=== PATIENT | female | born 1955 | race Caucasian/White ===

== ENCOUNTER → 2020-11-29 12:03 | Outpatient (CLI) | payer OTHER, SELFPAY ==
[2020-11-29 13:22] LABS: Coronavirus 19 IgG Antibody Positive (Negative); Coronavirus 19 IgM Antibody Negative (Negative)
== END ==
PROVIDERS: Visit Provider Internal Medicine Gastroenterology
DX: Z01.812 Encounter for preprocedural laboratory examination (principal); Z20.822 Contact with and (suspected) exposure to COVID-19; Z12.11 Encounter for screening for malignant neoplasm of colon
CPT/HCPCS: 36415; 86328

== ENCOUNTER 2020-12-01 08:02 | Day surgery (SDC) | payer OTHER, SELFPAY ==
[2020-10-14 15:56] VITALS: BMI 23.9
[2020-11-25 09:45] VITALS: BMI 23.9
[2020-12-01] VITALS (7 sets, daily range): BP systolic 85–135; BP diastolic 54–84; PULSE 61–86; RESP 18; TEMP 36.2–36.6; O2SAT 95–98
--- NOTE | 2020-12-01 09:37 | HMH.PROC ---
[facility] Procedure Note Procedure Note:: Colonoscopy Procedure Report: Colonoscopy with cold snare polypectomy Endoscopist: Jonas Bertrand II, MD Referring physician: Charlie Lam MD Date of Procedure: December 01, 2020 Equipment: Olympus 180 variable stiffness pediatric colonoscope Sedation: MAC sedation Indication: Mrs. Hill is a 65-year-old female who is here for follow-up screening/surveillance colonoscopy secondary to a personal history of adenomatous colon polyps. The patient had a colonoscopy in March 2010 and had a single polyp (tubular adenoma x1) removed. She had a repeat surveillance colonoscopy in April 2015 and had 2 colon polyps (tubular adenomas x2) removed. She reports no abdominal pain, weight loss, change in her bowel habits or rectal bleeding. She reports no family history of colon cancer. Procedure: Prior to the procedure, a history and physical exam was performed, and patient's medications and allergies were reviewed. The risks, benefits and alternatives of the sedation and procedure were discussed with the patient. All questions were answered and informed consent was obtained. The patient was brought to the procedure room. Patient identification and proposed procedure were verified by the physician and the nurse. The patient was placed in a left lateral decubitus position and the scope was passed under direct vision. Throughout the procedure, the patient's blood pressure, pulse, and oxygen saturations were monitored continuously. The colonoscopy was accomplished without difficulty. The patient tolerated the procedure well. Findings: On digital rectal examination there was normal rectal tone. There were no external hemorrhoids. The colonoscope was introduced through the anal canal to the rectum and advanced to the cecum. The ileocecal valve and appendiceal orifice were identified. The scope was advanced a short distance into the ileum which appeared grossly normal. The scope was then withdrawn into the colon. There were 2 colon polyps (cecum x1 (6 mm) and ascending x1 (5 mm)) which were both removed via cold snare polypectomy. The remainder of the ascending and transverse colon were normal. There were scattered extensive diverticuli throughout the descending and sigmoid colon (LEFT colon). The rectum itself was normal. Upon retroflexion within the rectum there were grade 1 internal hemorrhoids. The preparation was excellent throughout with [place] Preparation Score of 9. The cecal time was 12 minutes. Impression: 1. Colonic polyps x2 2. Left-sided diverticulosis 3. Grade 1 internal hemorrhoids Plan: I will follow up the polyp pathology and recommend repeat colonoscopy again in 5-7 years based upon the polyp histology. I would encourage bulk fiber supplementation on a long-term daily maintenance basis.
--- NOTE | 2020-12-01 15:49 | P.PN_ITS ---
[facility] Anesthesia Checklist - Structural Data Admitted From: Home Planned Operative Procedure/s: colon Consent for Planned Operative Procedure(s) Verified: Yes Verified Documents: Surgical Consent - Anesthesia Plan Anesthesia Risk discussed: Yes Anesthesia Plan: Patient unable to respond/answer ASA Class: III Anesthesia Type: General [facility] History Medical History: Reports:: Cancer (skin) Denies:: Diabetes Mellitus Type 1, Diabetes Mellitus Type 2, Internal Pacemaker, MRSA, Seizures *Have you ever received a pneumonia vaccine?: Yes *Have you received a flu vaccine this season?: Yes Anesthesia experience/problems:: none Laterality Cases: Bilateral: Arthroscopy Knee, Arthroscopy Shoulder Other Surgeries: No: Pacemaker Amputation: No Fractures: No - *Social History Alcohol Intake: never Substance Use Type: denies use *Occupational Status:: employed Housing: house Household Members: spouse *Travel in the last 8 weeks: None Family Hx:: No significant family history
== END 2020-12-01 10:26 | disposition home or self-care (01) ==
PROVIDERS: PCP Internal Medicine; Visit Provider Internal Medicine Gastroenterology
PROC: 0DJD8ZZ Inspection of Lower Intestinal Tract, Via Natural or Artificial Opening Endoscopic (ICD-10-PCS; CPT 45378; principal; 2020-12-01 09:00)
DX: Z12.11 Encounter for screening for malignant neoplasm of colon (principal); Z86.010 Personal history of colon polyps; K63.5 Polyp of colon; K57.30 Diverticulosis of large intestine without perforation or abscess without bleeding; K64.0 First degree hemorrhoids; Z85.828 Personal history of other malignant neoplasm of skin; Z87.39 Personal history of other diseases of the musculoskeletal system and connective tissue; Z79.899 Other long term (current) drug therapy
CPT/HCPCS: 45385

== ENCOUNTER 2024-11-08 10:15 | Day surgery (SDC) | payer MEDICARE, SELFPAY ==
[2024-11-06 14:31] VITALS: BMI 24.7
[2024-11-08] MEDS: LACTATED RINGERS 1000ML 1,000 ML 50 ML IV (10:36)
[2024-11-08 10:40] VITALS: BP 161/97; PULSE 87; RESP 18; TEMP 37.3; O2SAT 98
--- NOTE | 2024-11-08 10:43 | EXP.ANES.CKL ---
[facility] Disclaimer: The information contained in this section may have been updated after the patient was seen, as this information can be updated by other users. Medical History Colonoscopy planned Right hand fracture Rotator cuff arthropathy Cholecystectomy planned Ruptured, ovary Anxiety Surgical History (Updated 11/08/24 @ 10:38 by Ab Tyler RN) History of hand surgery History of back surgery History of hysterectomy History of appendectomy History of bilateral knee arthroplasty Family History Other Glaucoma Macular degeneration Social History Smoking Status: Never smoker alcohol intake: never substance use type: denies use current occupational status: employed Travel in the last 8 weeks: None household members: spouse housing: house current occupational exposures/hazards: No caffeine: No Have you lived/traveled outside [place] in past 30 days?: No Contact w/someone who lives/traveled outside US past 30 days?: No Exposure to someone with infectious disease in past 14 days?: No Do you have a fever (greater than 100.4 F or 38 C)?: No Have you tested positive for COVID-19: No Exposed to someone with COVID-19 in past 14 days?: No Do you have a sore throat?: No Do you have a cough?: No Do you have any weakness?: No Are you experiencing any nausea/vomitting?: No Do you have any diarrhea?: No Are you experiencing any unusual bleeding?: No Do you have any muscle aches/pain?: No Do you have any abdominal pain?: No Are you experiencing loss of taste or smell?: No [facility] Anesthesia Checklist Patient Identification Patient Identification: Arm Band and Verbal (Name & ) Structural Data Admitted From: Home Planned Operative Procedure/s: Colonoscopy Consent for Planned Operative Procedure(s) Verified: Yes Verified Documents: Surgical Consent and History and Physical NPO Status Verified Time NPO: 06:00 Additional verifications Patient : No Anesthesia Reactions: No Cardiovascular Assessment Heart Sounds: S1 & S2 Pulse Rhythm: Irregular Peripheral Edema: No Airway Assessment Mallampati Score:: Class II C-Spine Mobility Assessed: Yes TMJ Mobility Assessed: Yes Dentition: Good Dentition Neurological Assessment Level of Consciousness: Awake, Alert, Appropriate and Follows Commands Hx Seizures: No Numbness or tingling in extremities: No Anesthesia Plan Anesthesia Risk discussed: Yes Anesthesia Plan: Verified ASA Class: II Anesthesia Type: MAC
--- NOTE | 2024-11-08 11:54 | EXP.HP ---
History of Present Illness *Admission Date: 11/08/24 *Reason for visit:: Nausea, vomiting and diarrhea with rectal bleeding and clots *History of present illness: Mrs. Hill is a 69-year-old female who is here for diagnostic colonoscopy secondary to abdominal pain and rectal bleeding with clots. CT confirmed acute diverticulitis in August. The patient did have a colonoscopy in 2020 with me and had 2 polyps (tubular adenomas) and diverticulosis. The examination is deemed medically necessary for diagnostic colonoscopy. The patient has been seen, interviewed and examined prior to the procedure by both myself and the anesthesia provider. [facility] Disclaimer: The information contained in this section may have been updated after the patient was seen, as this information can be updated by other users. Medical History (Updated 11/08/24 @ 11:57 by Jonas Bertrand II, MD) Colonoscopy planned Right hand fracture Rotator cuff arthropathy Cholecystectomy planned Ruptured, ovary Anxiety Surgical History (Updated 11/08/24 @ 10:38 by Ab Tyler RN) History of hand surgery History of back surgery History of hysterectomy History of appendectomy History of bilateral knee arthroplasty Family History Other Glaucoma Macular degeneration Social History Smoking Status: Never smoker alcohol intake: never substance use type: denies use current occupational status: employed Travel in the last 8 weeks: None household members: spouse housing: house current occupational exposures/hazards: No caffeine: No Have you lived/traveled outside [place] in past 30 days?: No Contact w/someone who lives/traveled outside [place] past 30 days?: No Exposure to someone with infectious disease in past 14 days?: No Do you have a fever (greater than 100.4 F or 38 C)?: No Have you tested positive for COVID-19: No Exposed to someone with COVID-19 in past 14 days?: No Do you have a sore throat?: No Do you have a cough?: No Do you have any weakness?: No Are you experiencing any nausea/vomitting?: No Do you have any diarrhea?: No Are you experiencing any unusual bleeding?: No Do you have any muscle aches/pain?: No Do you have any abdominal pain?: No Are you experiencing loss of taste or smell?: No Other Medical History Have you received the Flu Vaccine for this season: Yes Have you received the Pneumonia Vaccine: No Review of Systems Review of Systems Review of systems (narrative): Negative *Cardiovascular Comments: Negative *Gastrointestinal Comments: Negative *Genitourinary Comments: Negative *Musculoskeletal Comments: Negative *Neurologic Comments: Negative Meds Home Medications and Allergies Home Medications ?Medication ?Instructions ?Recorded ?Confirmed ?Type multivitamin 1 each PO DAILY Supplement 10/14/20 11/08/24 History esomeprazole magnesium 20 mg 20 mg PO DAILY 08/30/24 11/08/24 History capsule,delayed release latanoprost 0.005 % eye drops 1 drp Eye-Both ONCE 08/30/24 11/08/24 History polyethylene glycol 3350 17 17 g PO DAILY 08/30/24 11/08/24 History gram/dose oral powder (Miralax) venlafaxine 75 mg capsule,extended 75 mg PO DAILY 08/30/24 11/08/24 History release 24 hr New Prescriptions to Start Prescriptions: Allergies Allergy/AdvReac Type Severity Reaction Status Date / Time codeine Allergy Vomiting Verified 11/08/24 10:38 Exam Data for Last 24 hours Vital signs and Labs for Last 24 Hours: Temp Pulse Resp BP Pulse Ox O2 Del Method 99.1 F 87 18 161/97 H 98 Room Air 11/08/24 10:40 11/08/24 10:40 11/08/24 10:40 11/08/24 10:40 11/08/24 10:40 11/08/24 10:40 I & O for Last 24 hours: Intake & Output 11/05/24 11/06/24 11/07/24 11/08/24 23:59 23:59 23:59 23:59 Weight 140 lb *Routine HEENT Exam Head: Present normocephalic Eye: Present EOMI and PERRL ENT: Present mucous membranes moist *Routine Neck Exam Neck: Present supple *Routine Respiratory Exam Respiratory: Present CTA bilaterally *Routine Cardiovascular Exam Cardiovascular: Present RRR *Routine Abdominal Exam Abdominal: Present soft and normoactive bowel sounds; Absent tenderness *Routine Rectal Exam Rectal:: deferred *Routine Genitalia Exam Genitalia:: deferred *Routine Extremities Exam Extremities: Absent cyanosis, clubbing or edema *Routine Skin Exam Skin: Present warm; Absent rash *Routine Neurological Exam Neurological: Present alert and oriented X3 Assessment and Plan *Assessment and plan (1) Rectal bleeding: Status: Acute Category: Medical Code(s): K62.5 - Hemorrhage of anus and rectum (2) Blood clots in stool: Status: Acute Category: Medical Code(s): K92.1 - Melena (3) Sigmoid diverticulitis: Status: Acute Category: Medical Code(s): K57.32 - Diverticulitis of large intestine without perforation or abscess without bleeding (4) Bloating: Status: Acute Category: Medical Code(s): R14.0 - Abdominal distension (gaseous) (5) Lower abdominal pain: Status: Acute Category: Medical Code(s): R10.30 - Lower abdominal pain, unspecified (6) Personal history of adenomatous and serrated colon polyps: Status: Acute Category: Medical Code(s): Z86.0101 - Personal history of adenomatous and serrated colon polyps Plan A/P: 1. Rectal bleeding with clots, sigmoid diverticulitis and lower abdominal pain with prior history of adenomatous polyps is the preprocedural diagnosis. The patient will be anesthetized/sedated using MAC sedation. The patient has been seen and examined. Cardiac and lung assessment prior to the examination is stable. Proceed with planned diagnostic colonoscopy
[2024-11-08 11:58] VITALS: O2SAT 100
--- NOTE | 2024-11-08 12:10 | HMH.PROCNOTE ---
[facility] Procedure Note Date: 11/08/24 Time: 12:26 Procedure Note:: Colonoscopy Procedure Report: Colonoscopy with cold snare polypectomy Endoscopist: Jonas Bertrand II, MD Referring physician: Charlie Lam MD Date of Procedure: November 08, 2024 Equipment: Olympus 190 variable stiffness pediatric colonoscope Sedation: MAC sedation Indication: Mrs. Hill is a 69-year-old female who is here for diagnostic colonoscopy. She has been struggling with recurrent diverticulitis episodes and her last episode was in August 2024. She did go to [facility] and she had a CAT scan that showed acute diverticulitis. Presumably this was uncomplicated diverticulitis. The CAT scan report is not available. She was successfully treated with Cipro and Flagyl. She was only taking MiraLAX 3 days a week. Subsequent to her visit with Iris PANCHAL in August 2024 she has been using the MiraLAX plus Metamucil daily. At the time of her bout of diverticulitis she was passing blood and blood clots in the toilet. She did have a colonoscopy with de in 2020 and had 2 polyps (small tubular adenomas x 2) removed. She was having moderate bloating, gassiness and abdominal distention. She reports no weight loss or family history of colon cancer. Procedure: Prior to the procedure, a history and physical exam was performed, and patient's medications and allergies were reviewed. The risks, benefits and alternatives of the sedation and procedure were discussed with the patient. All questions were answered and informed consent was obtained. The patient was brought to the procedure room. Patient identification and proposed procedure were verified by the physician and the nurse. The patient was placed in a left lateral decubitus position and the scope was passed under direct vision. Throughout the procedure, the patient's blood pressure, pulse, and oxygen saturations were monitored continuously. The colonoscopy was accomplished without difficulty. The patient tolerated the procedure well. Findings: On digital rectal examination there was normal rectal tone. There were no external hemorrhoids. The colonoscope was introduced through the anal canal to the rectum and advanced to the cecum. The ileocecal valve and appendiceal orifice were identified. The scope was advanced a short distance into the ileum which appeared grossly normal. The scope was then withdrawn into the colon. There was a single 8 mm polyp in the ascending colon removed via cold snare polypectomy. The remaining cecum, ascending and transverse colon and mucosa were grossly normal. There were scattered extensive [place] diverticuli throughout the descending and sigmoid colon (LEFT colon). There was no haustral edema, erythema or evidence of any chronic smoldering diverticulitis. The rectum itself was normal. Upon retroflexion within the rectum there were small grade 1 internal hemorrhoids. The preparation was excellent throughout with [place] Preparation Score of 9. The cecal time was 12 minutes. Impression: 1. Ascending colon polyp (8 mm) 2. Extensive left-sided diverticulosis with with no evidence of chronic or smoldering diverticulitis 3. Small grade 1 internal hemorrhoids Plan: I will follow-up the polyp histology and recommend repeat surveillance colonoscopy again in 5 years. I would encourage to the fiber bowel regimen on a long-term daily maintenance basis (combined MiraLAX plus Metamucil). I will obtain prior CAT scan report. As long as CAT scan shows no evidence of complicated diverticulitis (abscess or microperforation), she can continue to be manage medically with dietary measures and fiber bowel regimen.
[2024-11-08 12:29] VITALS: BP 96/52; PULSE 81; RESP 16; O2SAT 96
[2024-11-08 12:39] VITALS: BP 111/65; PULSE 87; RESP 16; O2SAT 99
[2024-11-08 12:49] VITALS: BP 123/76; PULSE 79; RESP 16; O2SAT 99
[2024-11-08 12:59] VITALS: BP 124/78; PULSE 80; RESP 16; O2SAT 99
== END 2024-11-08 13:10 | disposition home or self-care (01) ==
PROVIDERS: PCP Internal Medicine; Visit Provider Internal Medicine Gastroenterology
PROC: (CPT 45385; principal; 2024-11-08 12:00)
DX: K62.5 Hemorrhage of anus and rectum (principal); K57.32 Diverticulitis of large intestine without perforation or abscess without bleeding; R14.0 Abdominal distension (gaseous); R10.30 Lower abdominal pain, unspecified; Z86.0101 Personal history of adenomatous and serrated colon polyps; K04.7 Periapical abscess without sinus; K63.5 Polyp of colon; K57.30 Diverticulosis of large intestine without perforation or abscess without bleeding; K64.0 First degree hemorrhoids
CPT/HCPCS: 45385; J7120